=== PATIENT | male | born 1965 | race Asian ===

== ENCOUNTER 2017-01-03 18:14 | Outpatient (CLI) | payer OTHER | END 2017-01-03 18:22 | disposition short-term general hospital (02) | LOC: AMB 18:14 | DX: S01.81XA Laceration without foreign body of other part of head, initial encounter (principal); M79.671 Pain in right foot; M79.89 Other specified soft tissue disorders; Y00.XXXA Assault by blunt object, initial encounter; Y92.098 Other place in other non-institutional residence as the place of occurrence of the external cause | CPT/HCPCS: A0425; A0427 ==

== ENCOUNTER 2017-01-03 18:21 | Emergency (ER) | payer OTHER ==
[~2017-01-03] VITALS: Ht 175.3 cm; Wt 97.1 kg
[2017-01-03 19:04] LABS: PLATELET COUNT 205 K/uL (142-355)
[2017-01-03 19:06] LABS: POTASSIUM 3.4 mmol/L (3.6-5.2); SODIUM 133 mmol/L (136-145)
[2017-01-03 21:48] VITALS: BP 143/84; TEMP 98
== END 2017-01-03 21:56 | disposition home or self-care (01) ==
LOC: ED 18:21
PROVIDERS: Emergency Medicine
PROC: 0JQ10ZZ Repair Face Subcutaneous Tissue and Fascia, Open Approach (ICD-10-PCS; principal; 2017-01-03)
DX: S01.81XA Laceration without foreign body of other part of head, initial encounter (principal); S92.901A Unspecified fracture of right foot, initial encounter for closed fracture; F10.129 Alcohol abuse with intoxication, unspecified; Y00.XXXA Assault by blunt object, initial encounter
CPT/HCPCS: 36415; 80053; 80320; 85027; 96374; 99284; J1885

== ENCOUNTER 2017-01-14 08:55 | Emergency (ER) | payer OTHER ==
[~2017-01-14] VITALS: Ht 177.8 cm; Wt 97.1 kg
[2017-01-14 09:03] VITALS: BP 138/98; TEMP 98.2
== END 2017-01-14 09:29 | disposition home or self-care (01) ==
LOC: ED 08:55
DX: Z48.02 Encounter for removal of sutures (principal)
CPT/HCPCS: 36415; 96374; 96375; 99284

== ENCOUNTER 2020-09-09 12:45 | Emergency (ER) | payer BC ==
[~2020-09-09] VITALS: Ht 175.3 cm; Wt 97.1 kg
[2020-09-09 13:45] LABS: POTASSIUM 3.8 mmol/L (3.6-5.2); SODIUM 139 mmol/L (136-145)
[2020-09-09 13:47] LABS: PLATELET COUNT 150 K/uL (142-355)
[2020-09-09 15:40] VITALS: BP 131/74; TEMP 98.5
== END 2020-09-09 15:40 | disposition home or self-care (01) ==
LOC: ED 12:45
PROVIDERS: Emergency Medicine Emergency Medical Services
DX: K21.9 Gastro-esophageal reflux disease without esophagitis (principal)
CPT/HCPCS: 36415; 80053; 84484; 85007; 85027; 93005; 96374; 99284; J3490

== ENCOUNTER 2020-11-30 10:00 | Emergency (ER) | payer BC ==
[~2020-11-30] VITALS: Ht 172.7 cm; Wt 84.8 kg
[2020-11-30] MEDS ORDERED: ITRACONAZOLE PO (10:15)
[2020-11-30 10:23] LABS: PLATELET COUNT 374 K/uL (142-355)
[2020-11-30 10:30] LABS: POTASSIUM 3.7 mmol/L (3.6-5.2)
[2020-11-30 13:06] VITALS: BP 116/74; TEMP 98.9
== END 2020-11-30 13:06 | disposition home or self-care (01) ==
LOC: ED 10:00
PROVIDERS: Hospitalist
DX: K29.60 Other gastritis without bleeding (principal); K20.80 Other esophagitis without bleeding; R11.2 Nausea with vomiting, unspecified; J18.9 Pneumonia, unspecified organism; Z03.818 Encounter for observation for suspected exposure to other biological agents ruled out; Z98.890 Other specified postprocedural states
CPT/HCPCS: 80053; 81000; 82150; 83690; 85027; 87635; 96361; 96365; 96366; 96374; 99284; J1956; J2405; U0003

== ENCOUNTER 2022-02-23 19:58 | Inpatient (IN) | payer OTHER ==
[~2022-02-23] VITALS: Ht 177.8 cm; Wt 92.6 kg
[2022-02-23] VITALS (10 sets, daily range): BP systolic 104–136; BP diastolic 62–84; TEMP 102.7
[~2022-02-23 19:58] MED LIST: ITRACONAZOLE PO
[2022-02-23 21:04] LABS: PLATELET COUNT 140 K/uL (142-355)
[2022-02-23 21:05] LABS: POTASSIUM 4.4 mmol/L (3.6-5.2)
[2022-02-24] VITALS (9 sets, daily range): BP systolic 101–137; BP diastolic 63–84; TEMP 99.9–103; Ht 177.8 cm; Wt 92.6 kg
[2022-02-24] MEDS ORDERED: BIKTARVY 50-2001 TAB PO (04:27)
[2022-02-24 05:52] LABS: PLATELET COUNT 137 K/uL (142-355)
[2022-02-25] VITALS (7 sets, daily range): BP systolic 103–142; BP diastolic 49–83; TEMP 98.6–100.1
[2022-02-25 11:57] LABS: PLATELET COUNT 171 K/uL (142-355)
[2022-02-25 12:11] LABS: POTASSIUM 4.8 mmol/L (3.6-5.2)
[2022-02-26] VITALS: BP 106/76; TEMP 98.9
[2022-02-26 04:00] VITALS: BP 123/53; TEMP 98.8
[2022-02-26 07:11] LABS: PLATELET COUNT 194 K/uL (142-355)
[2022-02-26 08:00] VITALS: BP 126/78; TEMP 98.5
[2022-02-26 09:47] LABS: POTASSIUM 4.6 mmol/L (3.6-5.2)
[2022-02-26 12:00] VITALS: BP 100/70; TEMP 98.5
[2022-02-26] MEDS ORDERED: LEVAQUIN250 MG PO (13:27)
[2022-02-26] MEDS ORDERED: IPRAAER INH (13:30)
== END 2022-02-26 16:00 | disposition home or self-care (01) | DRG 975 ==
LOC: ED 19:58 → MED/SURG 23:55 → UNDODEPER 02-24 00:40 → MED/SURG 02-26 16:00
PROVIDERS: Internal Medicine; ADMIT Emergency Medicine Emergency Medical Services; ATTEND Internal Medicine
DX: J18.8 Other pneumonia, unspecified organism (principal); B20 Human immunodeficiency virus [HIV] disease; N17.9 Acute kidney failure, unspecified
CPT/HCPCS: 36415; 80053; 81000; 82150; 83605; 83690; 83735; 85027; 87040; 87502; 87635; 87651; 94664; 94760; 96360; 96361; 96365; 96366; 96375; 99284; J1885; J1956; J2405; J3490; Q9963; U0003

== ENCOUNTER 2022-04-12 01:26 | Emergency (ER) | payer OTHER ==
[~2022-04-12] VITALS: Ht 177.8 cm; Wt 90.7 kg
[~2022-04-12 01:26] MED LIST changes: +BIKTARVY 50-2001 TAB PO; +IPRAAER INH; +LEVAQUIN250 MG PO
[2022-04-12 02:35] LABS: PLATELET COUNT 225 K/uL (142-355)
[2022-04-12 03:16] LABS: PARTIAL THROMBOPLASTIN TIME 24.4 SECONDS (24.5-33.6)
[2022-04-12 08:15] VITALS: BP 117/79; TEMP 98
== END 2022-04-12 08:32 | disposition short-term general hospital (02) ==
LOC: ED 01:26
PROVIDERS: Family Medicine
PROC: 0HQNXZZ Repair Left Foot Skin, External Approach (ICD-10-PCS; principal; 2022-04-12)
PROC: 0HQMXZZ Repair Right Foot Skin, External Approach (ICD-10-PCS; 2022-04-12)
PROC: 0HQGXZZ Repair Left Hand Skin, External Approach (ICD-10-PCS; 2022-04-12)
PROC: 0HQFXZZ Repair Right Hand Skin, External Approach (ICD-10-PCS; 2022-04-12)
PROC: 0HQJXZZ Repair Left Upper Leg Skin, External Approach (ICD-10-PCS; 2022-04-12)
DX: T59.811A Toxic effect of smoke, accidental (unintentional), initial encounter (principal); R06.03 Acute respiratory distress; S61.411A Laceration without foreign body of right hand, initial encounter; S61.011A Laceration without foreign body of right thumb without damage to nail, initial encounter; S61.412A Laceration without foreign body of left hand, initial encounter; S71.112A Laceration without foreign body, left thigh, initial encounter; S91.312A Laceration without foreign body, left foot, initial encounter; S91.311A Laceration without foreign body, right foot, initial encounter; S30.811A Abrasion of abdominal wall, initial encounter; X08.8XXA Exposure to other specified smoke, fire and flames, initial encounter; Y92.098 Other place in other non-institutional residence as the place of occurrence of the external cause
CPT/HCPCS: 36600; 80053; 81002; 82550; 82805; 84484; 85027; 85610; 85730; 90471; 90715; 93005; 96365; 96375; 99285; J0696; J1885; J7040

== ENCOUNTER 2022-04-26 10:17 | Emergency (ER) | payer OTHER ==
[~2022-04-26] VITALS: Ht 177.8 cm; Wt 90.7 kg
[2022-04-26 10:21] VITALS: BP 121/89; TEMP 97.5
== END 2022-04-26 11:17 | disposition home or self-care (01) ==
LOC: ED 10:17
DX: S61.210D Laceration without foreign body of right index finger without damage to nail, subsequent encounter (principal); S61.012D Laceration without foreign body of left thumb without damage to nail, subsequent encounter; S71.112D Laceration without foreign body, left thigh, subsequent encounter; L08.9 Local infection of the skin and subcutaneous tissue, unspecified; W25.XXXD Contact with sharp glass, subsequent encounter; Y92.89 Other specified places as the place of occurrence of the external cause
CPT/HCPCS: 96372; 99283; J0696; J1885

== ENCOUNTER 2022-05-12 13:16 | Emergency (ER) | payer OTHER ==
[~2022-05-12] VITALS: Ht 177.8 cm; Wt 90.7 kg
[2022-05-12 15:18] VITALS: BP 124/70; TEMP 97.1
== END 2022-05-12 15:18 | disposition home or self-care (01) ==
LOC: ED 13:16
DX: Z48.02 Encounter for removal of sutures (principal)